=== PATIENT | male | born 1985 | race Native Hawaiian/Other Pacific Islander ===

== ENCOUNTER 2022-10-16 15:00 | Outpatient (CLI) | payer MEDICAID ==
[2022-10-16 15:43] VITALS: BP 130/78
--- NOTE | 2022-10-16 15:43 | SLEEP CARE CONSULTATION ---
Information from patient questionnaire entered by Ro Manrique. I have reviewed and concur with the information entered by Ro Manrique. This document represents the service I personally performed and the decisions made by me, Kerry Liao ARNP. History of Present Illness Service Date and Time: 10/16/2022 1500 Reason for Visit: New patient Chief Complaint: reports: Insomnia, Unrefreshed sleep, Snoring, Fatigue, Frequent awakenings at night Date of Onset: 5-6YRS Usual bedtime: 11PM Time it takes to fall asleep: 20MIN Snores at night: Yes (sometimes) Observed to quit breathing while asleep: No Sleeps alone due to snoring: No Number of times waking at night: 2 Reasons for waking at night: reports: Other (NOISE ANXIETY UNKNOWN REASONS ). denies: Choking, Snoring, Gasping for air Toss, Turn, or Twitch while sleeping: Yes Recalls having dreams: Yes Usually gets out of bed at: 630AM; 0830 occasionally Feels refreshed in the morning: No Morning headache: Yes (4 days a week; RESOLVES AFTER MORNING COFFEE) Sleepy or fatigued during the day: Yes Ever fallen asleep while driving: No Takes day naps: No Dreams during day naps: No Prior sleep studies: No Additional HPI information: I had the pleasure of seeing RENATE PAIGE today regarding the possibility of him having a sleep disorder. His current complaints are unrefreshed sleep, snoring, fatigue, insomnia and frequent night awakenings. He states he can't sleep more than 5 hours a night. He can fall asleep normally in about 20 minutes. He will wake up and not be able to fall asleep for 30 minutes or more. He is a very light sleeper and he is constantly being kept awake with noises. He used to drink alcohol to be able to sleep but he no longer drinks. He has a history of anxiety, depression and Bipolar. He has two siblings who have been diagnosed with sleep apnea. 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 Patient is Single and lives in . Have you smoked in the past 12 months: No Alcohol use: No Caffeine use: Yes Caffeine amount and frequency: 1 POT A DAY Family History Family history of sleep disordered breathing: Yes Family Hx Sleep Apnea: Sibling: Snoring, Sleep apnea - Treated, Sleep apnea - Untreated Allergies and Home Medications Known drug allergies: Yes (TYLENOL 3 W CODIENE ) Drug allergies reviewed: Yes Home medication list reviewed: Yes Allergy and home medication list: Medications: Risperidone Omeprazole Lisinopril Review of Systems Weight gain over past 5 years: 20, plateaued right now Weight loss over past 5 years: 50 Cardiovascular: reports: high blood pressure Respiratory: reports: shortness of breath Gastrointestinal: reports: abdominal pain. denies: heartburn Neurological: reports: headaches Psychiatric: denies: Attention Deficit Hyperactivity Ear/Nose/Throat: reports: wisdom teeth removed. denies: tonsillectomy Endocrine: reports: sluggishness, unexplained weakness Musculoskeletal: reports: neck pain, back pain Immunologic: reports: rash Physical Exam Vital signs obtained and entered by: RO Olivia MA Blood Pressure: 130/78 (LEFT ARM) Cuff size: regular Heart Rate: 73 O2 Saturation: 98 Height: 5 ft 8 in Weight: 190 lb 4.8 oz Body Mass Index: 28.9 BMI Classification: Overweight Neck circumference: 16 Mouth and throat: narrow oropharynx Soft palate: normal Hard palate: normal Uvula: normal Uvula visualization: 50% Mallampati Class II Tongue: enlarged in size with teeth amezquita on lateral edges Tonsils: small Neck: normal w/o lymphadenopathy or thyromegaly Heart: regular rate and rhythm Lungs: clear bilaterally Impression and Plan 1. Suspected Obstructive Sleep Apnea-Hypopnea Syndrome, as suggested by a history of loud and irregular snoring, observed cessation of breath while asleep, morning headache, frequent awakening during the night, unrefreshed sleep, and excessive daytime sleepiness. Narrow oropharynx and obesity are common predisposing factors for obstructive sleep apnea-hypopnea syndrome. I recommend proceeding to polysomnography to confirm the diagnosis and to assess severity. If the patient has significant sleep disordered breathing, a manual CPAP titration study will also be performed to find the optimal treatment pressure. I informed the patient of what the sleep studies involve and after some discussion, obtained agreement to proceed. The pathophysiology of obstructive sleep apnea-hypopnea syndrome was discussed with the patient and health risks of cardiovascular and cerebrovascular disease if not treated. Risks of drowsy driving discussed in detail and patient advised to avoid long distance driving and to slab puller at the first sign of drowsiness. Patient agreed to plan. * Schedule polysomnography * Avoid long distance driving or driving when feeling sleepy. * Avoid alcohol, sedative and muscle relaxant around bedtime. * Attempt to lose weight. * Review instructions provided by trained office staff on how to prepare for the sleep study. * Return for follow-up after sleep study completed. Counseling Topics: Weight loss health impact Visit Type: In Office Time Spent with Patient (minutes): 24 Provider Statement: I spent 100% of the Face to Face Visit with the patient with greater than 50% spent counseling the patient and coordination of care.
== END 2022-10-16 15:01 | disposition home or self-care (01) ==
LOC: SC 15:00
PROVIDERS: ATTEND Nurse Practitioner Family
DX: R53.83 Other fatigue (principal); G47.8 Other sleep disorders; R51.9 Headache, unspecified; R06.83 Snoring; F32.A Depression, unspecified; E66.3 Overweight; Z68.28 Body mass index [BMI] 28.0-28.9, adult
CPT/HCPCS: 99202; 99212

== ENCOUNTER 2022-10-23 19:31 | Outpatient (CLI) | payer MEDICAID | END 2022-10-23 19:32 | disposition home or self-care (01) | LOC: SC 19:31 | PROVIDERS: ATTEND Nurse Practitioner Family | DX: G47.33 Obstructive sleep apnea (adult) (pediatric) (principal) | CPT/HCPCS: 95810 ==